=== PATIENT | female | born 1965 | race Caucasian/White ===

== ENCOUNTER 2021-08-01 15:45 | Emergency (ER) | payer OTHER ==
[~2021-08-01 15:45] MED LIST: CYCLOBENZAPRINE10 MG PO; LIPITOR40 MG PO; MACROBID100 MG PO; PERCOCET 5-3251 EACH PO; PRINIVIL10 MG PO; VOLTAREN **OUT75 MG PO
== END 2021-08-01 19:44 | disposition home or self-care (01) ==
LOC: FER 15:45
DX: I10 Essential (primary) hypertension (principal); F17.210 Nicotine dependence, cigarettes, uncomplicated; Z79.899 Other long term (current) drug therapy
CPT/HCPCS: 70450; J3490

== ENCOUNTER 2022-01-25 19:03 | Emergency (ER) | payer OTHER ==
[~2022-01-25 19:03] MED LIST changes: +AMOXICILLIN500 MG PO; +ASPIRIN EC81 MG PO; +ELIQUIS5 MG PO; +FLONASE ALLER15.8 ML; +LIPITOR 10MG TA10 MG PO; +MOBIC7.5 MG PO; +NORVASC5 MG PO; +SINGULAIR10 MG PO; +TOPROL XL 25MG25 MG PO
[2022-01-25 20:22] LABS: BASOPHIL 0.3 % (0-2); EOSINOPHIL 0.3 % (0-5); HCT 43.7 % (37.0-47.0); HGB 14.4 g/dl (12.5-16.0); LYMPHOCYTE 19.1 % (15-48); MCH 31.5 pg (25.0-31.0); MCV 95.6 fL (78.0-100.0); MONOCYTE 7.6 % (0-12); MPV 10.7 fL (6.0-9.5); NEUTROPHIL 72.1 % (41-80); NRBC 0; PLT 268 K/uL (150-400); RBC 4.57 M/uL (4.20-5.40); RDW 13.7 % (11.5-14.0); WBC 10.1 K/uL (4.0-10.5)
[2022-01-25 20:35] LABS: INR 1.19 (0.9-1.2); PROTHROMBIN TIME 14.5 SECONDS (11.8-13.4); PTT 24.6 SECONDS (24.4-34.7)
[2022-01-25 20:36] LABS: D-DIMER 0.3 ug/mLFEU (0.00-0.41)
[2022-01-25 20:46] LABS: BUN/CREAT RATIO (CALC) 26.6 RATIO; CREATININE 0.64 mg/dL (0.51-0.95); POTASSIUM 3.7 mmol/L (3.5-5.1)
== END 2022-01-25 21:36 | disposition home or self-care (01) ==
LOC: FER 19:03
PROVIDERS: Internal Medicine
DX: R07.89 Other chest pain (principal); I10 Essential (primary) hypertension; Z79.01 Long term (current) use of anticoagulants; Z79.899 Other long term (current) drug therapy
CPT/HCPCS: 36415; 80048; 84145; 84484; 85025; 85379; 85610; 85730; 93005

== ENCOUNTER 2022-06-12 12:22 | Emergency (ER) | payer OTHER ==
[2022-06-12 13:03] LABS: BASOPHIL 0.3 % (0-2); EOSINOPHIL 1.7 % (0-5); HCT 39.7 % (37.0-47.0); HGB 13.2 g/dl (12.5-16.0); LYMPHOCYTE 29.2 % (15-48); MCHC 33.2 g/dL (32.0-36.0); MCV 96.1 fL (78.0-100.0); MONOCYTE 8.3 % (0-12); MPV 10.9 fL (6.0-9.5); NRBC 0; PLT 265 K/uL (150-400); RBC 4.13 M/uL (4.20-5.40); RDW 13.8 % (11.5-14.0); WBC 7.4 K/uL (4.0-10.5)
[2022-06-12 13:11] LABS: BILIRUBIN NEGATIVE (NEGATIVE); BLOOD NEGATIVE Ery/uL (NEGATIVE); CLARITY CLEAR (CLEAR); COLOR YELLOW (YELLOW); GLUCOSE (U) TRACE mg/dL (NORMAL); LEUKOCYTES TRACE Leu/uL (NEGATIVE); NITRITE NEGATIVE (NEGATIVE); PROTEIN NEGATIVE (NEGATIVE); SPECIFIC GRAVITY 1.015 (1.001-1.030); UROBILINOGEN 0.2 mg/dL (0.2-1.0); pH 5.5 (5.0-9.0)
[2022-06-12 13:15] LABS: INR 1.03 (0.9-1.2); PROTHROMBIN TIME 13.2 SECONDS (11.9-13.9); PTT 25.8 SECONDS (24.9-34.6)
[2022-06-12 13:16] LABS: D-DIMER 0.27 ug/mLFEU (0.00-0.41)
[2022-06-12 13:18] LABS: BACTERIA TRACE
[2022-06-12 13:25] LABS: ALBUMIN 3.2 g/dL (3.4-5.0); BILIRUBIN - TOTAL 0.5 mg/dL (0.2-1.0); BUN/CREAT RATIO (CALC) 17.8 RATIO; CREATININE 0.73 mg/dL (0.51-0.95); GLOBULIN (CALCULATION) 3.8 g/dL; POTASSIUM 3.6 mmol/L (3.5-5.1)
[2022-06-12 13:32] LABS: CORONAVIRUS 2019 SARS-COV-2 NEGATIVE (NEGATIVE); INFLUENZA A NAA NEGATIVE (NEGATIVE)
== END 2022-06-12 17:38 | disposition home or self-care (01) ==
LOC: FER 12:22
PROVIDERS: Nurse Practitioner Family
DX: R07.89 Other chest pain (principal); R06.02 Shortness of breath; I10 Essential (primary) hypertension; Z87.891 Personal history of nicotine dependence; Z79.01 Long term (current) use of anticoagulants; Z79.899 Other long term (current) drug therapy; Z20.822 Contact with and (suspected) exposure to COVID-19
CPT/HCPCS: 36415; 71046; 80053; 81001; 84484; 85025; 85379; 85610; 85730; 87088; 93005; U0002